=== PATIENT | female | born 1975 | race Two or more races ===

== ENCOUNTER 2017-05-04 09:17 | Observation (INO) | payer SELFPAY ==
[~2017-05-04] VITALS: Ht 152.4 cm; Wt 90.7 kg
--- NOTE | 2017-05-04 12:45 | RAD ---
Ultrasound biophysical profile, 05/04/2017: History: Decreased movement The limited examination of the gravid uterus demonstrates a single fetus in a cephalic orientation. The heart rate was 135 bpm. A full survey was not performed. The amniotic fluid index is 9.9. The placenta is centered anteriorly. The following biophysical profile scores were obtained: breathing movements-2 motion-2 tone-2 Amniotic fluid volume-2. Total score-8 out of 8: IMPRESSION: The ultrasound component of the biophysical profile score is 8 out of 8
== END 2017-05-04 13:03 | disposition home or self-care (01) ==
LOC: 3 SO LND 09:17
PROVIDERS: ADMIT Specialist; ATTEND Specialist
DX: O36.8190 Decreased fetal movements, unspecified trimester, not applicable or unspecified (principal); Z3A.00 Weeks of gestation of pregnancy not specified
CPT/HCPCS: 76819; G0378; G0379